=== PATIENT | female | born 1990 | race Caucasian/White ===

== ENCOUNTER 2022-12-23 01:49 | Emergency (ER) | payer BC ==
[~2022-12-23] VITALS: Ht 154.9 cm; Wt 45.4 kg
[2022-12-23] MEDS ORDERED: ONDANSETRON HCL INJ 2MG/ML 2ML 2 MG/ML VIAL IV STA (02:17)
[2022-12-23] MEDS ORDERED: SODIUM CHLORIDE 0.9% 1000ML 1,000 ML IV ONE (02:30)
[2022-12-23 02:34] LABS: HEMATOCRIT 40.2 % (34.2-44.1); HEMOGLOBIN 13.3 g/dL (12.0-16.0); LYMPHOCYTES # (AUTO) 0.6 (1.0-3.2); LYMPHOCYTES % 8.6 % (18.0-39.1); MEAN CORPUSCULAR HGB CONC 33.1 g/dL (31-35); MEAN CORPUSCULAR VOLUME 96.6 fL (81-99); MONOCYTES # (AUTO) 0.4 (0.2-0.8); MONOCYTES % 5.3 % (4.4-11.3); NEUTROPHILS # (AUTO) 6.1 (2.1-6.9); PLATELET COUNT 270 x10e3/uL (140-360); RED BLOOD COUNT 4.16 x10e6/uL (3.6-5.1); RED CELL DISTRIBUTION WIDTH 11.5 % (11.7-14.4)
[2022-12-23 02:53] LABS: ALANINE AMINOTRANSFERASE 13 IU/L (0-55); ALBUMIN 4.6 g/dL (3.5-5.0); ALBUMIN/GLOBULIN RATIO 1.1 (0.8-2.0); ALKALINE PHOSPHATASE 50 IU/L (40-150); ANION GAP 18.8 mmol/L (8-16); BLOOD UREA NITROGEN 6 mg/dL (7-26); BUN/CREATININE RATIO 8 (6-25); CALCIUM 10.2 mg/dL (8.4-10.2); CARBON DIOXIDE 19 mmol/L (22-29); CHLORIDE 104 mmol/L (98-107); CREATININE, SERUM 0.77 mg/dL (0.57-1.11); GLUCOSE 102 mg/dL (74-118); LIPASE 33 U/L (8-78); POTASSIUM 3.8 mmol/L (3.5-5.1); SODIUM 138 mmol/L (136-145)
[2022-12-23 03:02] LABS: CLARITY,URINE SL CLOUDY (CLEAR); COLOR,URINE YELLOW (YELLOW); KETONES,URINE >=160 (NEGATIVE); LEUKOCYTE ESTERASE ,URINE NEGATIVE (NEGATIVE); NITRITE,URINE NEGATIVE (NEGATIVE); PROTEIN,URINE DIPSTICK 1+ (NEGATIVE); URINE UROBILINOGEN 0.2 mg/dL (0.2 - 1)
[2022-12-23 03:04] LABS: BACTERIA,URINE FEW /HPF; EPITHELIAL CELLS,URINE MODERATE /LPF; RBC,URINE 0-5 /HPF (0-5); WBC,URINE (MAN) 0-5 /HPF (0-5)
[2022-12-23 03:05] LABS: MUCUS,URINE MODERATE (RARE)
[2022-12-23] MEDS ORDERED: ONDANSETRON ODT4 MG PO (03:57)
[2022-12-23 04:18] VITALS: BP 125/80
== END 2022-12-23 04:17 | disposition home or self-care (01) ==
LOC: ER 01:57
DX: R11.10 Vomiting, unspecified (principal)
CPT/HCPCS: 36415; 80053; 81001; 83690; 84702; 85025; 99283; J2405; J7030

== ENCOUNTER 2025-08-10 14:36 | Emergency (ER) | payer SELFPAY ==
[~2025-08-10] VITALS: Ht 154.9 cm; Wt 64.9 kg
[~2025-08-10 14:36] MED LIST: BENZONATATE100 MG PO; CEFDINIR300 MG PO; ONDANSETRON ODT4 MG PO; PANTOPRAZOLE SO40 MG PO; PHENERGAN SUPP25 MG PR
[2025-08-10 15:06] VITALS: PULSE 76; RESP 19; TEMP 97.6
[2025-08-10 15:11] LABS: BASOPHILS % 0.4 % (0.0-1.0); EOSINOPHILS % 0.0 % (0.0-6.0); LYMPHOCYTES % 22.5 % (18.0-39.1); MONOCYTES % 4.3 % (4.4-11.3); NEUTROPHILS % 72.4 % (38.7-80.0); RED CELL DISTRIBUTION WIDTH 11.9 % (11.7-14.4)
[2025-08-10] MEDS: HALOPERIDOL LACTATE 5 MG/ML VIAL IV ONE (15:26)
[2025-08-10] MEDS: SODIUM CHLORIDE 0.9% 1000ML 1,000 ML IV STA (15:26)
[2025-08-10 15:40] LABS: EST GLOMERULAR FILTRATION RATE 112.0 ML/MIN (>=60)
[2025-08-10 16:12] VITALS: BP 132/79; PULSE 99; RESP 19; TEMP 97.8; O2SAT 100
== END 2025-08-10 16:07 | disposition home or self-care (01) ==
LOC: ER 14:41
DX: R11.2 Nausea with vomiting, unspecified (principal); R11.16 Cannabis hyperemesis syndrome; F41.9 Anxiety disorder, unspecified
CPT/HCPCS: 36415; 80053; 83690; 84702; 85025; 99283; J1630; J7030